=== PATIENT | male | born 1935 | race Caucasian/White ===

== ENCOUNTER → 2017-10-26 | Outpatient (CLI) | payer OTHER ==
[2017-10-26 10:23] LABS: Urine Bacteria FEW /hpf (None Seen); Urine Blood Negative /uL (Negative); Urine Mucus FEW (None Seen); Urine Specific Gravity 1.033 (1.001-1.035); Urine WBC 1 /hpf (0 - 3)
[2017-10-26 10:26] LABS: Free T4 (Free Thyroxine) 1.32 ng/dL (0.89-1.76)
[2017-10-26 10:27] LABS: Prostate Specific Antigen 0.25 ng/mL (0.0-4.0)
[2017-10-26 10:35] LABS: Basophils # (auto) 0.1 uL; Basophils % (auto) 1.6 % (0.0-2.0); Eosinophils # (auto) 0.3 uL; Eosinophils % (auto) 3.2 % (0.0-7.0); Hematocrit 41.1 % (41.0-53.0); Hemoglobin 13.5 g/dL (13.5-17.5); Lymphocytes # (auto) 2.2 uL; Lymphocytes % (auto) 24.7 % (10.0-50.0); Mean Corpuscular Hemoglobin 29.9 pg (28.0-32.0); Mean Corpuscular Hgb Conc. 32.9 g/dL (32.0-36.0); Monocytes # (auto) 0.6 uL; Neutrophils # (auto) 5.6 uL; Neutrophils % (auto) 63.5 % (37.0-80.0); Nucleated Red Blood Cells % 0.2 %; Platelet Count (auto) 299 10^3/uL (140-450); Red Blood Cells 4.51 10^6/uL (4.5-5.90); Red Cell Distribution Width 15.3 % (11.8-14.3); White Blood Cell 8.8 10^3/uL (4.4-10.8)
[2017-10-26 10:36] LABS: Alanine Aminotransferase 9 U/L (16-61); Albumin 3.3 g/dL (3.4-5.0); Alkaline Phosphatase 93 U/L (45-117); Anion Gap 6 (5-15); Aspartate Aminotransferase 16 U/L (15-37); BUN/Creatinine Ratio 14.2; Bilirubin, Total 0.4 mg/dL (0.2-1.0); Blood Urea Nitrogen 19 mg/dL (7-18); Calcium 7.9 mg/dL (8.5-10.1); Carbon Dioxide 23 mmol/L (21-32); Chloride 112 mmol/L (98-107); Cholesterol 131 mg/dL (< 200); GFR African American 65 mL/min; GFR Non-African American 54 mL/min; Glucose 108 mg/dL (74-106); HDL Cholesterol 25 mg/dL (40-59); Potassium 4.5 mmol/L (3.5-5.1); Sodium 141 mmol/L (136-145); Total Protein 6.4 g/dL (6.4-8.2); Triglycerides 476 mg/dL (< 150)
== END | disposition home or self-care (01) ==
LOC: LAB 09:10
PROVIDERS: ATTEND Internal Medicine
DX: N40.0 Benign prostatic hyperplasia without lower urinary tract symptoms (principal); H92.02 Otalgia, left ear; I10 Essential (primary) hypertension
CPT/HCPCS: 36415; 80053; 80061; 81001; 84153; 84439; 84443; 85025; 85652

== ENCOUNTER 2018-07-18 13:14 | Emergency (ER) | payer OTHER ==
[~2018-07-18] VITALS: Ht 175.3 cm; Wt 68.0 kg
[2018-07-18] MEDS ORDERED: SODIUM CHLORIDE 0.9% 1,000 ML IV ONE (13:18)
[2018-07-18 14:09] VITALS: BP 143/67
[2018-07-18 14:23] LABS: Basophils # (auto) 0.1 uL; Basophils % (auto) 0.8 % (0.0-2.0); Eosinophils # (auto) 0.1 uL; Eosinophils % (auto) 0.9 % (0.0-7.0); Hematocrit 41.8 % (41.0-53.0); Hemoglobin 13.8 g/dL (13.5-17.5); Lymphocytes # (auto) 1.7 uL; Lymphocytes % (auto) 18.9 % (10.0-50.0); Mean Corpuscular Hemoglobin 30.4 pg (28.0-32.0); Mean Corpuscular Volume 92.2 fL (80.0-100.0); Monocytes # (auto) 0.6 uL; Monocytes % (auto) 6.3 % (0.0-12.0); Neutrophils # (auto) 6.8 uL; Neutrophils % (auto) 73.1 % (37.0-80.0); Nucleated Red Blood Cells % 0.1 %; Platelet Count (auto) 277 10^3/uL (140-450); Red Blood Cells 4.54 10^6/uL (4.5-5.90); Red Cell Distribution Width 15.5 % (11.8-14.3); White Blood Cell 9.2 10^3/uL (4.4-10.8)
[2018-07-18 14:38] LABS: INR 0.95 (0.9-1.15); Partial Thromboplastin Time 31.2 sec (23.78-33.04); Prothrombin Time 10.2 sec (9.27-12.13)
[2018-07-18 14:42] LABS: Albumin 3.5 g/dL (3.4-5.0); Anion Gap 9 (5-15); Blood Urea Nitrogen 54 mg/dL (7-18); Calcium 7.7 mg/dL (8.5-10.1); Carbon Dioxide 17 mmol/L (21-32); Chloride 109 mmol/L (98-107); Glucose 69 mg/dL (74-106); Potassium 4.5 mmol/L (3.5-5.1); Sodium 135 mmol/L (136-145)
[2018-07-18 14:48] LABS: Alanine Aminotransferase 15 U/L (16-61); Alkaline Phosphatase 90 U/L (45-117); Aspartate Aminotransferase 16 U/L (15-37); BUN/Creatinine Ratio 31.8; GFR African American 50 mL/min; GFR Non-African American 41 mL/min; Total Protein 7.1 g/dL (6.4-8.2)
== END 2018-07-18 16:16 | disposition home or self-care (01) ==
LOC: ER 13:16
DX: R55 Syncope and collapse (principal); I10 Essential (primary) hypertension
CPT/HCPCS: 36415; 70450; 71045; 80053; 83880; 84484; 85025; 85610; 85730; 93005; 96360; 99284; J7030

== ENCOUNTER → 2019-03-22 | Outpatient (CLI) | payer OTHER ==
[2019-03-22 12:58] LABS: Basophils # (auto) 0.1 uL; Basophils % (auto) 0.9 % (0.0-2.0); Eosinophils # (auto) 0.4 uL; Eosinophils % (auto) 3.6 % (0.0-7.0); Hematocrit 39.4 % (41.0-53.0); Hemoglobin 13.2 g/dL (13.5-17.5); Lymphocytes # (auto) 2.1 uL; Lymphocytes % (auto) 21.4 % (10.0-50.0); Mean Corpuscular Hemoglobin 30.5 pg (28.0-32.0); Mean Corpuscular Hgb Conc. 33.4 g/dL (32.0-36.0); Mean Corpuscular Volume 91.4 fL (80.0-100.0); Monocytes # (auto) 0.8 uL; Monocytes % (auto) 7.9 % (0.0-12.0); Neutrophils # (auto) 6.6 uL; Neutrophils % (auto) 66.2 % (37.0-80.0); Platelet Count (auto) 323 10^3/uL (140-450); Red Blood Cells 4.32 10^6/uL (4.5-5.90); Red Cell Distribution Width 13.6 % (11.8-14.3); White Blood Cell 9.9 10^3/uL (4.4-10.8)
[2019-03-22 13:09] LABS: Albumin 3.1 g/dL (3.4-5.0); BUN/Creatinine Ratio 29.6; Calcium 8.6 mg/dL (8.5-10.1); Potassium 4.5 mmol/L (3.5-5.1)
[2019-03-22 13:12] LABS: Bilirubin, Total 0.5 mg/dL (0.2-1.0); Total Protein 6.9 g/dL (6.4-8.2)
[2019-03-22 13:15] LABS: % Iron Saturation 18.8 % (20-55)
[2019-03-22 13:19] LABS: Folate (Folic Acid) 19.68 ng/mL (5.38-24)
== END | disposition home or self-care (01) ==
LOC: LAB 11:51
PROVIDERS: ATTEND Internal Medicine
DX: C01 Malignant neoplasm of base of tongue (principal)
CPT/HCPCS: 36415; 80053; 82607; 82746; 83540; 83550; 83615; 85025

== ENCOUNTER → 2019-03-28 | Outpatient (CLI) | payer OTHER ==
[2019-03-28 10:36] LABS: Basophils # (auto) 0.1 uL; Basophils % (auto) 1.1 % (0.0-2.0); Eosinophils # (auto) 0.2 uL; Eosinophils % (auto) 2.8 % (0.0-7.0); Hematocrit 37.6 % (41.0-53.0); Hemoglobin 12.5 g/dL (13.5-17.5); Lymphocytes # (auto) 1.2 uL; Lymphocytes % (auto) 15.9 % (10.0-50.0); Mean Corpuscular Hemoglobin 30.3 pg (28.0-32.0); Mean Corpuscular Hgb Conc. 33.3 g/dL (32.0-36.0); Monocytes # (auto) 0.4 uL; Monocytes % (auto) 4.9 % (0.0-12.0); Neutrophils # (auto) 5.9 uL; Neutrophils % (auto) 75.3 % (37.0-80.0); Nucleated Red Blood Cells % 0.1 %; Platelet Count (auto) 279 10^3/uL (140-450); Red Blood Cells 4.13 10^6/uL (4.5-5.90); White Blood Cell 7.8 10^3/uL (4.4-10.8)
[2019-03-28 11:17] LABS: Potassium 4.5 mmol/L (3.5-5.1)
[2019-03-28 11:19] LABS: BUN/Creatinine Ratio 26.4
[2019-03-28 11:40] LABS: Bilirubin, Total 0.5 mg/dL (0.2-1.0); Total Protein 6.2 g/dL (6.4-8.2)
== END | disposition home or self-care (01) ==
LOC: LAB 10:11
PROVIDERS: ATTEND Internal Medicine Hematology & Oncology
DX: C01 Malignant neoplasm of base of tongue (principal)
CPT/HCPCS: 36415; 80053; 83615; 85025

== ENCOUNTER → 2019-04-05 | Outpatient (CLI) | payer OTHER ==
[2019-04-05 10:44] LABS: Basophils # (auto) 0.1 uL; Basophils % (auto) 0.9 % (0.0-2.0); Eosinophils # (auto) 0.3 uL; Eosinophils % (auto) 3.5 % (0.0-7.0); Hematocrit 35.4 % (41.0-53.0); Hemoglobin 11.9 g/dL (13.5-17.5); Lymphocytes # (auto) 1.2 uL; Lymphocytes % (auto) 15.2 % (10.0-50.0); Mean Corpuscular Hemoglobin 30.6 pg (28.0-32.0); Mean Corpuscular Hgb Conc. 33.5 g/dL (32.0-36.0); Mean Corpuscular Volume 91.3 fL (80.0-100.0); Monocytes # (auto) 0.5 uL; Monocytes % (auto) 6.5 % (0.0-12.0); Neutrophils # (auto) 6.1 uL; Neutrophils % (auto) 73.9 % (37.0-80.0); Nucleated Red Blood Cells % 0.1 %; Platelet Count (auto) 285 10^3/uL (140-450); Red Blood Cells 3.88 10^6/uL (4.5-5.90); Red Cell Distribution Width 13.6 % (11.8-14.3); White Blood Cell 8.2 10^3/uL (4.4-10.8)
[2019-04-05 11:18] LABS: BUN/Creatinine Ratio 27.1; Calcium 8.1 mg/dL (8.5-10.1); Magnesium 2.5 mg/dL (1.6-2.6); Potassium 4.4 mmol/L (3.5-5.1)
[2019-04-05 11:20] LABS: Bilirubin, Total 0.5 mg/dL (0.2-1.0); Total Protein 6.5 g/dL (6.4-8.2)
== END | disposition home or self-care (01) ==
LOC: LAB 10:18
PROVIDERS: ATTEND Internal Medicine Hematology & Oncology
DX: C01 Malignant neoplasm of base of tongue (principal)
CPT/HCPCS: 36415; 80053; 83615; 83735; 85025

== ENCOUNTER → 2019-04-12 | Outpatient (CLI) | payer OTHER ==
[2019-04-12 10:53] LABS: Basophils # (auto) 0 uL; Basophils % (auto) 0.8 % (0.0-2.0); Eosinophils # (auto) 0.2 uL; Eosinophils % (auto) 3.4 % (0.0-7.0); Hematocrit 34.5 % (41.0-53.0); Hemoglobin 11.7 g/dL (13.5-17.5); Lymphocytes # (auto) 0.9 uL; Lymphocytes % (auto) 14.9 % (10.0-50.0); Mean Corpuscular Hemoglobin 30.9 pg (28.0-32.0); Mean Corpuscular Hgb Conc. 33.9 g/dL (32.0-36.0); Mean Corpuscular Volume 91.1 fL (80.0-100.0); Monocytes # (auto) 0.5 uL; Monocytes % (auto) 8.5 % (0.0-12.0); Neutrophils # (auto) 4.5 uL; Neutrophils % (auto) 72.4 % (37.0-80.0); Nucleated Red Blood Cells % 0.2 %; Platelet Count (auto) 258 10^3/uL (140-450); Red Blood Cells 3.79 10^6/uL (4.5-5.90); Red Cell Distribution Width 14.2 % (11.8-14.3); White Blood Cell 6.2 10^3/uL (4.4-10.8)
[2019-04-12 11:29] LABS: Potassium 4.5 mmol/L (3.5-5.1)
[2019-04-12 11:38] LABS: Albumin 3.2 g/dL (3.4-5.0); BUN/Creatinine Ratio 27.3; Bilirubin, Total 0.5 mg/dL (0.2-1.0); Calcium 8.4 mg/dL (8.5-10.1); Magnesium 2.6 mg/dL (1.6-2.6); Total Protein 6.4 g/dL (6.4-8.2)
== END | disposition home or self-care (01) ==
LOC: LAB 09:55
PROVIDERS: ATTEND Internal Medicine
DX: C01 Malignant neoplasm of base of tongue (principal)
CPT/HCPCS: 36415; 80053; 83735; 85025

== ENCOUNTER → 2019-04-19 | Outpatient (CLI) | payer OTHER ==
[2019-04-19 10:27] LABS: Basophils # (auto) 0.1 uL; Basophils % (auto) 1.2 % (0.0-2.0); Eosinophils # (auto) 0.3 uL; Eosinophils % (auto) 4.8 % (0.0-7.0); Hematocrit 30.7 % (41.0-53.0); Lymphocytes % (auto) 18.8 % (10.0-50.0); Mean Corpuscular Hemoglobin 31.7 pg (28.0-32.0); Mean Corpuscular Hgb Conc. 35.9 g/dL (32.0-36.0); Mean Corpuscular Volume 88.4 fL (80.0-100.0); Monocytes # (auto) 0.3 uL; Neutrophils # (auto) 3.7 uL; Neutrophils % (auto) 69.2 % (37.0-80.0); Platelet Count (auto) 155 10^3/uL (140-450); Red Blood Cells 3.47 10^6/uL (4.5-5.90); Red Cell Distribution Width 14.1 % (11.8-14.3); White Blood Cell 5.4 10^3/uL (4.4-10.8)
[2019-04-19 11:07] LABS: Albumin 3.2 g/dL (3.4-5.0); BUN/Creatinine Ratio 27.1; Potassium 4.5 mmol/L (3.5-5.1)
[2019-04-19 11:10] LABS: Bilirubin, Total 0.6 mg/dL (0.2-1.0); Total Protein 6.5 g/dL (6.4-8.2)
== END | disposition home or self-care (01) ==
LOC: LAB 10:09
PROVIDERS: ATTEND Internal Medicine
DX: C01 Malignant neoplasm of base of tongue (principal)
CPT/HCPCS: 36415; 80053; 85025

== ENCOUNTER → 2019-04-26 | Outpatient (CLI) | payer OTHER ==
[2019-04-26 10:50] LABS: Basophils # (auto) 0 uL; Basophils % (auto) 0.8 % (0.0-2.0); Eosinophils # (auto) 0.3 uL; Eosinophils % (auto) 6.8 % (0.0-7.0); Hematocrit 31.6 % (41.0-53.0); Lymphocytes # (auto) 0.9 uL; Lymphocytes % (auto) 21.5 % (10.0-50.0); Mean Corpuscular Hemoglobin 31.5 pg (28.0-32.0); Mean Corpuscular Hgb Conc. 34.9 g/dL (32.0-36.0); Mean Corpuscular Volume 90.3 fL (80.0-100.0); Monocytes # (auto) 0.3 uL; Monocytes % (auto) 6.7 % (0.0-12.0); Neutrophils # (auto) 2.6 uL; Neutrophils % (auto) 64.2 % (37.0-80.0); Nucleated Red Blood Cells % 0.1 %; Platelet Count (auto) 181 10^3/uL (140-450); Red Blood Cells 3.49 10^6/uL (4.5-5.90); Red Cell Distribution Width 14.3 % (11.8-14.3)
[2019-04-26 12:16] LABS: Albumin 3.2 g/dL (3.4-5.0); BUN/Creatinine Ratio 25.5; Bilirubin, Total 0.7 mg/dL (0.2-1.0); Total Protein 6.4 g/dL (6.4-8.2)
== END | disposition home or self-care (01) ==
LOC: LAB 09:48
PROVIDERS: ATTEND Internal Medicine
DX: C01 Malignant neoplasm of base of tongue (principal)
CPT/HCPCS: 36415; 80053; 83615; 85025

== ENCOUNTER → 2019-05-03 | Outpatient (CLI) | payer OTHER ==
[2019-05-03 09:32] LABS: Basophils # (auto) 0 uL; Basophils % (auto) 0.8 % (0.0-2.0); Eosinophils # (auto) 0.1 uL; Eosinophils % (auto) 1.8 % (0.0-7.0); Hemoglobin 10.7 g/dL (13.5-17.5); Lymphocytes # (auto) 0.6 uL; Lymphocytes % (auto) 17.3 % (10.0-50.0); Mean Corpuscular Hemoglobin 31.8 pg (28.0-32.0); Mean Corpuscular Hgb Conc. 34.3 g/dL (32.0-36.0); Mean Corpuscular Volume 92.7 fL (80.0-100.0); Monocytes # (auto) 0.4 uL; Monocytes % (auto) 12.8 % (0.0-12.0); Neutrophils # (auto) 2.2 uL; Neutrophils % (auto) 67.3 % (37.0-80.0); Platelet Count (auto) 251 10^3/uL (140-450); Red Blood Cells 3.35 10^6/uL (4.5-5.90); Red Cell Distribution Width 14.8 % (11.8-14.3); White Blood Cell 3.3 10^3/uL (4.4-10.8)
[2019-05-03 10:11] LABS: Albumin 3.1 g/dL (3.4-5.0); Calcium 7.8 mg/dL (8.5-10.1); Potassium 5.4 mmol/L (3.5-5.1)
[2019-05-03 10:14] LABS: BUN/Creatinine Ratio 24.2; Bilirubin, Total 0.6 mg/dL (0.2-1.0); Total Protein 6.5 g/dL (6.4-8.2)
== END | disposition home or self-care (01) ==
LOC: LAB 09:16
PROVIDERS: ATTEND Internal Medicine Hematology & Oncology
DX: C01 Malignant neoplasm of base of tongue (principal)
CPT/HCPCS: 36415; 80053; 83615; 85025

== ENCOUNTER → 2019-05-23 | Outpatient (CLI) | payer OTHER ==
[2019-05-23 10:47] LABS: Hematocrit 31.3 % (41.0-53.0); Hemoglobin 10.6 g/dL (13.5-17.5); Mean Corpuscular Hemoglobin 33.7 pg (28.0-32.0); Mean Corpuscular Hgb Conc. 34.1 g/dL (32.0-36.0); Mean Corpuscular Volume 99.1 fL (80.0-100.0); Platelet Count (auto) 223 10^3/uL (140-450); Red Blood Cells 3.16 10^6/uL (4.5-5.90); White Blood Cell 7.4 10^3/uL (4.4-10.8)
[2019-05-23 10:50] LABS: Basophils % (manual) 0 (0.0-2.0); Blast Cells 0; Myelocytes % 0; Promyelocytes % 0; Reactive Lymphocytes 0
[2019-05-23 11:32] LABS: Band Neutrophils % (manual) 14; Eosinophils % (manual) 2 (0-7); Ferritin 530.1 ng/mL (10-322); Folate (Folic Acid) > 24.00 ng/mL (5.38-24); Lymphocytes % (manual) 11 (10.0-50.0); Metamyelocytes % 2; Monocytes % (manual) 6 (0-12)
[2019-05-23 12:24] LABS: Potassium 4.6 mmol/L (3.5-5.1)
[2019-05-23 12:39] LABS: Albumin 2.9 g/dL (3.4-5.0); BUN/Creatinine Ratio 27.3; Bilirubin, Total 0.5 mg/dL (0.2-1.0); Calcium 8.6 mg/dL (8.5-10.1); Total Protein 6.9 g/dL (6.4-8.2)
[2019-05-23 12:44] LABS: % Iron Saturation 25.4 % (20-55)
== END | disposition home or self-care (01) ==
LOC: LAB 10:27
PROVIDERS: ATTEND Internal Medicine
DX: C01 Malignant neoplasm of base of tongue (principal)
CPT/HCPCS: 36415; 80053; 82607; 82728; 82746; 83540; 83550; 83615; 85007; 85027

== ENCOUNTER → 2019-08-21 | Outpatient (CLI) | payer OTHER ==
[2019-08-21 14:20] LABS: Albumin 3.3 g/dL (3.4-5.0); Calcium 8.3 mg/dL (8.5-10.1); Potassium 4.3 mmol/L (3.5-5.1)
[2019-08-21 14:21] LABS: % Iron Saturation 12.6 % (20-55)
[2019-08-21 14:23] LABS: BUN/Creatinine Ratio 31.6; Basophils # (auto) 0.1 uL; Basophils % (auto) 0.8 % (0.0-2.0); Bilirubin, Total 0.6 mg/dL (0.2-1.0); Eosinophils # (auto) 0.1 uL; Eosinophils % (auto) 2.1 % (0.0-7.0); Hematocrit 35.3 % (41.0-53.0); Hemoglobin 12.1 g/dL (13.5-17.5); Lymphocytes # (auto) 0.8 uL; Lymphocytes % (auto) 11.2 % (10.0-50.0); Mean Corpuscular Hgb Conc. 34.3 g/dL (32.0-36.0); Monocytes # (auto) 0.6 uL; Monocytes % (auto) 7.8 % (0.0-12.0); Neutrophils # (auto) 5.7 uL; Neutrophils % (auto) 78.1 % (37.0-80.0); Platelet Count (auto) 250 10^3/uL (140-450); Red Blood Cells 3.57 10^6/uL (4.5-5.90); Total Protein 6.9 g/dL (6.4-8.2); White Blood Cell 7.3 10^3/uL (4.4-10.8)
== END | disposition home or self-care (01) ==
LOC: LAB 13:40
PROVIDERS: ATTEND Internal Medicine
DX: D10.1 Benign neoplasm of tongue (principal)
CPT/HCPCS: 36415; 80053; 82607; 83540; 83550; 83615; 85025

== ENCOUNTER → 2019-11-28 | Outpatient (CLI) | payer OTHER ==
[2019-11-28 09:06] LABS: Basophils # (auto) 0.1 10 ^3/uL (0-0.2); Basophils % (auto) 1.1 % (0.0-2.0); Eosinophils # (auto) 0.2 10 ^3/uL (0-0.8); Eosinophils % (auto) 2.6 % (0.0-7.0); Hematocrit 40.2 % (41.0-53.0); Hemoglobin 13.3 g/dL (13.5-17.5); Lymphocytes # (auto) 0.8 10 ^3/uL (0.4-5.4); Lymphocytes % (auto) 12.9 % (10.0-50.0); Mean Corpuscular Hemoglobin 31.2 pg (28.0-32.0); Mean Corpuscular Volume 94.4 fL (80.0-100.0); Monocytes # (auto) 0.5 10 ^3/uL (0-1.3); Monocytes % (auto) 7.2 % (0.0-12.0); Neutrophils % (auto) 76.2 % (37.0-80.0); Nucleated Red Blood Cells % 0.1 %; Platelet Count (auto) 277 10^3/uL (140-450); Red Blood Cells 4.26 10^6/uL (4.5-5.90); Red Cell Distribution Width 14.7 % (11.8-14.3); White Blood Cell 6.5 10^3/uL (4.4-10.8)
[2019-11-28 10:03] LABS: Potassium 4.2 mmol/L (3.5-5.1)
[2019-11-28 10:13] LABS: Albumin 3.1 g/dL (3.4-5.0); BUN/Creatinine Ratio 26.2; Bilirubin, Total 0.7 mg/dL (0.2-1.0); Calcium 8.5 mg/dL (8.5-10.1); Total Protein 6.8 g/dL (6.4-8.2)
== END | disposition home or self-care (01) ==
LOC: LAB 08:42
PROVIDERS: ATTEND Internal Medicine
DX: D10.1 Benign neoplasm of tongue (principal)
CPT/HCPCS: 36415; 80053; 83615; 85025

== ENCOUNTER 2020-02-17 20:58 | Emergency (ER) | payer OTHER ==
[~2020-02-17] VITALS: Ht 175.3 cm; Wt 72.6 kg
[2020-02-17 22:06] LABS: Urine Bacteria NONE SEEN /hpf (None Seen); Urine Blood Negative /uL (Negative); Urine Specific Gravity 1.019 (1.001-1.035); Urine WBC 1 /hpf (0 - 3)
[2020-02-18 00:11] LABS: Basophils # (auto) 0.1 10 ^3/uL (0-0.2); Basophils % (auto) 0.5 % (0.0-2.0); Eosinophils # (auto) 0.1 10 ^3/uL (0-0.8); Eosinophils % (auto) 0.9 % (0.0-7.0); Hematocrit 41.2 % (41.0-53.0); Hemoglobin 13.8 g/dL (13.5-17.5); Lymphocytes # (auto) 0.9 10 ^3/uL (0.4-5.4); Lymphocytes % (auto) 7.4 % (10.0-50.0); Mean Corpuscular Hemoglobin 30.4 pg (28.0-32.0); Mean Corpuscular Hgb Conc. 33.5 g/dL (32.0-36.0); Mean Corpuscular Volume 90.8 fL (80.0-100.0); Monocytes # (auto) 0.9 10 ^3/uL (0-1.3); Monocytes % (auto) 7.6 % (0.0-12.0); Neutrophils # (auto) 9.9 10 ^3/uL (1.6-8.6); Neutrophils % (auto) 83.6 % (37.0-80.0); Platelet Count (auto) 269 10^3/uL (140-450); Red Blood Cells 4.54 10^6/uL (4.5-5.90); Red Cell Distribution Width 14.9 % (11.8-14.3); White Blood Cell 11.8 10^3/uL (4.4-10.8)
[2020-02-18 00:28] LABS: Albumin 3.5 g/dL (3.4-5.0); Amylase 48 U/L (25-115); Anion Gap 6 (5-15); BUN/Creatinine Ratio 19.7; Blood Urea Nitrogen 29 mg/dL (7-18); Calcium 8.7 mg/dL (8.5-10.1); Carbon Dioxide 26 mmol/L (21-32); Chloride 100 mmol/L (98-107); GFR African American 58 mL/min; GFR Non-African American 48 mL/min; Glucose 112 mg/dL (74-106); Lipase 137 U/L (73-393); Potassium 4.2 mmol/L (3.5-5.1); Sodium 132 mmol/L (136-145)
[2020-02-18 00:33] LABS: Alanine Aminotransferase 26 U/L (16-61); Alkaline Phosphatase 150 U/L (45-117); Aspartate Aminotransferase 24 U/L (15-37); Bilirubin, Total 1.3 mg/dL (0.2-1.0); Total Protein 7.9 g/dL (6.4-8.2)
[2020-02-18 04:12] VITALS: BP 157/68
== END 2020-02-18 07:49 | disposition home or self-care (01) ==
LOC: ER 20:58
DX: D72.829 Elevated white blood cell count, unspecified (principal); E86.0 Dehydration; I10 Essential (primary) hypertension
CPT/HCPCS: 36415; 74176; 80053; 81001; 82150; 83690; 84484; 85025; 93005

== ENCOUNTER 2020-05-18 16:14 | Inpatient (IN) | payer OTHER ==
[~2020-05-18] VITALS: Ht 172.7 cm; Wt 75.0 kg
[2020-05-18 17:12] LABS: Urine Bacteria FEW /hpf (None Seen); Urine Blood Negative /uL (Negative); Urine Hyaline Cast FEW /lpf (0 - 2); Urine WBC 1 /hpf (0 - 3)
[2020-05-18 17:45] LABS: Basophils # (auto) 0.1 10 ^3/uL (0-0.2); Basophils % (auto) 0.2 % (0.0-2.0); Eosinophils # (auto) 0 10 ^3/uL (0-0.8); Hematocrit 43.8 % (41.0-53.0); Lymphocytes # (auto) 1.1 10 ^3/uL (0.4-5.4); Mean Corpuscular Hemoglobin 29.9 pg (28.0-32.0); Mean Corpuscular Volume 93.4 fL (80.0-100.0); Monocytes % (auto) 3.7 % (0.0-12.0); Neutrophils # (auto) 24.8 10 ^3/uL (1.6-8.6); Neutrophils % (auto) 92.1 % (37.0-80.0); Platelet Count (auto) 352 10^3/uL (140-450); Red Blood Cells 4.69 10^6/uL (4.5-5.90); Red Cell Distribution Width 15.7 % (11.8-14.3)
[2020-05-18 17:52] LABS: Albumin 3.8 g/dL (3.4-5.0); BUN/Creatinine Ratio 30.4; Calcium 8.8 mg/dL (8.5-10.1); Potassium 4.9 mmol/L (3.5-5.1)
[2020-05-18 17:59] LABS: Bilirubin, Total 1.9 mg/dL (0.2-1.0); Total Protein 7.9 g/dL (6.4-8.2)
[2020-05-18] MEDS ORDERED: MORPHINE SULFATE 4 MG/ML SYR/VIAL IV ONE (18:45)
[2020-05-18] MEDS ORDERED: ONDANSETRON HCL 4 MG/2 ML VIAL IV ONE (18:45)
[2020-05-18] MEDS ORDERED: PIPERACILLIN-TAZOB 3.375GM 100 ML IV ONE (18:45)
[2020-05-18] MEDS ORDERED: SODIUM CHLORIDE 0.9% 1,000 ML IV ONE (18:45)
[2020-05-18 19:52] LABS: Lactic Acid w/Reflex 3.1 mmol/L (0.4-2.0)
[2020-05-18] MEDS ORDERED: ACETAMINOPHEN 325 MG TAB PO PRN (23:45)
[2020-05-18] MEDS ORDERED: NITROGLYCERIN 0.4 MG SL TAB SL PRN (23:45)
[2020-05-18] MEDS ORDERED: SODIUM CHLORIDE 0.9% 1,000 ML IV SCH (23:45)
[2020-05-18] MEDS ORDERED: ONDANSETRON HCL 4 MG/2 ML VIAL IV PRN (23:45)
[2020-05-18] MEDS ORDERED: DOCUSATE SOD 100 MG CAP PO PRN (23:45)
[2020-05-18] MEDS ORDERED: MORPHINE SULF INJ 2 MG/ML SYRINGE 1ML IV PRN (23:45)
[2020-05-19] VITALS (7 sets, daily range): BP systolic 135–152; BP diastolic 73–78
[2020-05-19] MEDS: MORPHINE SULFATE 4 MG/ML SYR/VIAL IV PRN ×2 (01:22→09:16)
--- NOTE | 2020-05-19 01:50 | NUR ---
ADMISSION NOTE PT ADMITTED TO ROOM 218-A IN [facility]. PT ORIENTED TO ROOM AND PROCEDURES AND POC DISCUSSED WITH PT. PT NOTED TO HAVE A BAND AID DRSG OVER A DC'D FEEDING TUBE SITE. LEFT UPPER ABD HAS A SMALL SCAB AND SURROUNDING TISSUE IS PINK. BED IS LOW, WHEELS ARE LOCKED, AND CALL LIGHT IS WITH IN REACH.
[2020-05-19] MEDS ORDERED: PIPERACILLIN-TAZOB 2.25GM 50 ML IV SCH (06:00)
[2020-05-19] MEDS ORDERED: FOSI20TA3 PO (06:25)
[2020-05-19] MEDS ORDERED: METO25TA93 PO (06:25)
[2020-05-19 07:25] LABS: Basophils # (auto) 0 10 ^3/uL (0-0.2); Basophils % (auto) 0.2 % (0.0-2.0); Eosinophils # (auto) 0 10 ^3/uL (0-0.8); Eosinophils % (auto) 0.1 % (0.0-7.0); Hematocrit 41.9 % (41.0-53.0); Hemoglobin 14.1 g/dL (13.5-17.5); Lymphocytes # (auto) 0.9 10 ^3/uL (0.4-5.4); Lymphocytes % (auto) 5.8 % (10.0-50.0); Mean Corpuscular Hemoglobin 31.3 pg (28.0-32.0); Mean Corpuscular Hgb Conc. 33.6 g/dL (32.0-36.0); Monocytes # (auto) 0.7 10 ^3/uL (0-1.3); Monocytes % (auto) 4.6 % (0.0-12.0); Neutrophils # (auto) 14.2 10 ^3/uL (1.6-8.6); Neutrophils % (auto) 89.3 % (37.0-80.0); Nucleated Red Blood Cells % 0.1 %; Platelet Count (auto) 267 10^3/uL (140-450); Red Blood Cells 4.51 10^6/uL (4.5-5.90); Red Cell Distribution Width 15.2 % (11.8-14.3); White Blood Cell 15.9 10^3/uL (4.4-10.8)
[2020-05-19 07:52] LABS: Albumin 3.2 g/dL (3.4-5.0); BUN/Creatinine Ratio 33.2; Bilirubin, Total 1.3 mg/dL (0.2-1.0); Calcium 8.1 mg/dL (8.5-10.1); Total Protein 6.5 g/dL (6.4-8.2)
[2020-05-19 08:24] LABS: Potassium 5.7 mmol/L (3.5-5.1)
[2020-05-19] MEDS: PANTOPRAZOLE 40 MG/10 ML VIAL INJ IV SCH (09:16)
[2020-05-19] MEDS ORDERED: cefTRIAXone 1GM/50ML D5W 50 ML IV ONE (13:45)
[2020-05-19] MEDS ORDERED: SOD CHL 0.9%/ KCL 20MEQ 1,000 ML IV SCH (14:00)
[2020-05-19] MEDS: HYDROmorphone HCL 2 MG/ML VL IV PRN ×2 (14:17→21:38)
[2020-05-19] MEDS: SODIUM CHLORIDE 0.9% 1,000 ML IV SCH ×2 (14:17→21:37)
[2020-05-19] MEDS: metroNIDAZOLE 500MG/100ML 100 ML IV SCH ×2 (14:43→21:37)
--- NOTE | 2020-05-19 19:30 | NUR ---
Opening Shift Note Assumed care of patient, awake and alert. No S/S of distress/SOB. Pain reported to abdomen. Pain management discussed with patient. Instructed on POC and to call for assist PRN, will continue to monitor for changes Q1hr and PRN.
[2020-05-20 05:00] VITALS: BP 141/77
[2020-05-20] MEDS: metroNIDAZOLE 500MG/100ML 100 ML IV SCH (06:42)
[2020-05-20] MEDS: SODIUM CHLORIDE 0.9% 1,000 ML IV SCH (06:42)
--- NOTE | 2020-05-20 07:00 | NUR ---
Opening Shift Note Assumed care of patient, awake, alert lying supine with head down upon entering the room. No S/S of distress/SOB. Pain reported in the right abdominal pain upon palpation. Patient remains NPO awaiting HIDA scan. Instructed on POC and to call for assist PRN. Patient verbalized understanding. Bed is in lowest position an the call light is within reach of the patient. Will continue to monitor for changes Q1hr and PRN.
[2020-05-20 07:14] LABS: Amylase 718 U/L (25-115); Lipase 1431 U/L (73-393)
[2020-05-20 08:30] VITALS: BP 151/72
[2020-05-20] MEDS ORDERED: cefTRIAXone 1GM/50ML D5W 50 ML IV SCH (09:00)
[2020-05-20] MEDS: PANTOPRAZOLE 40 MG/10 ML VIAL INJ IV SCH (09:13)
[2020-05-20] MEDS: SODIUM BICARBONATE 50ML VIAL 150 ML in D5W 5% 1,000 ML IV SCH ×2 (09:15→20:48)
[2020-05-20 09:29] LABS: Basophils # (auto) 0 10 ^3/uL (0-0.2); Basophils % (auto) 0.1 % (0.0-2.0); Eosinophils # (auto) 0 10 ^3/uL (0-0.8); Hematocrit 40.9 % (41.0-53.0); Lymphocytes # (auto) 0.7 10 ^3/uL (0.4-5.4); Lymphocytes % (auto) 3.3 % (10.0-50.0); Mean Corpuscular Hemoglobin 30.5 pg (28.0-32.0); Mean Corpuscular Hgb Conc. 31.9 g/dL (32.0-36.0); Mean Corpuscular Volume 95.7 fL (80.0-100.0); Monocytes # (auto) 0.9 10 ^3/uL (0-1.3); Monocytes % (auto) 4.1 % (0.0-12.0); Neutrophils # (auto) 19.4 10 ^3/uL (1.6-8.6); Neutrophils % (auto) 92.5 % (37.0-80.0); Platelet Count (auto) 243 10^3/uL (140-450); Red Blood Cells 4.27 10^6/uL (4.5-5.90); Red Cell Distribution Width 16.2 % (11.8-14.3)
[2020-05-20 09:39] LABS: Albumin 2.9 g/dL (3.4-5.0); Calcium 7.9 mg/dL (8.5-10.1); Potassium 3.7 mmol/L (3.5-5.1)
[2020-05-20 09:41] LABS: BUN/Creatinine Ratio 24.3; Bilirubin, Total 0.9 mg/dL (0.2-1.0); Total Protein 6.4 g/dL (6.4-8.2)
[2020-05-20] MEDS ORDERED: MEROPENEM 1GM IVPB 100 ML IV ONE (09:45)
[2020-05-20] MEDS ORDERED: MEROPENEM 500MG IVPB 50 ML IV SCH (10:00)
[2020-05-20] MEDS ORDERED: MEROPENEM 1GM IVPB 100 ML IV SCH (10:00)
--- NOTE | 2020-05-20 10:20 | NUR ---
Dr. Hu at bedside Dr. Hu at bedside discussing the POC with the patient. Patient verbalized understanding. Orders given and carried out accordingly.
[2020-05-20 10:43] LABS: Cholesterol 84 mg/dL (< 200); HDL Cholesterol 37 mg/dL (40-59); LDL Cholesterol 36 mg/dL (< 100); Triglycerides 102 mg/dL (< 150)
[2020-05-20 12:30] VITALS: BP 152/78
--- NOTE | 2020-05-20 13:00 | NUR ---
Dr. Waters at bedside Dr. Waters at bedside discussing the POC. All questions and concerns were addressed at this time.
--- NOTE | 2020-05-20 15:01 | NUR ---
US at bedside US at bedside conducting kidney ultrasound.
[2020-05-20] MEDS: HYDROcodone-ACET 5/325MG TAB PO PRN ×3 (15:43→18:03)
[2020-05-20] MEDS: HYDROmorphone HCL 2 MG/ML VL IV PRN (15:52)
[2020-05-20 17:00] VITALS: BP 149/69
[2020-05-20 17:46] LABS: Calcium 7.8 mg/dL (8.5-10.1); Potassium 4.9 mmol/L (3.5-5.1)
[2020-05-20 17:48] LABS: BUN/Creatinine Ratio 25.4
[2020-05-20 22:00] VITALS: BP 155/85
[2020-05-20] MEDS: MEROPENEM 500MG IVPB 50 ML IV SCH (22:48)
--- NOTE | 2020-05-21 | NUR ---
Patient refused to turn/reposition q2 hrs or prn for skin breakdown prevention. Patient does have blanchable redness on heels bilateral, right heel has a scab, and blanchable redness to coccyx/sacrum area. Educated patient on the importance of turning/repositioning q2 hours or prn for prevention of skin breakdown. Patient verbally acknowledge education given and still refused to turn/reposition q2 hours or prn.
[2020-05-21] MEDS: HYDROmorphone HCL 2 MG/ML VL IV PRN ×3 (02:18→21:15)
[2020-05-21 05:00] VITALS: BP 171/78
[2020-05-21 06:08] LABS: Basophils # (auto) 0 10 ^3/uL (0-0.2); Basophils % (auto) 0.1 % (0.0-2.0); Eosinophils # (auto) 0 10 ^3/uL (0-0.8); Eosinophils % (auto) 0.1 % (0.0-7.0); Hematocrit 38.5 % (41.0-53.0); Hemoglobin 12.5 g/dL (13.5-17.5); Lymphocytes # (auto) 0.7 10 ^3/uL (0.4-5.4); Lymphocytes % (auto) 3.7 % (10.0-50.0); Mean Corpuscular Hemoglobin 30.4 pg (28.0-32.0); Mean Corpuscular Hgb Conc. 32.6 g/dL (32.0-36.0); Mean Corpuscular Volume 93.3 fL (80.0-100.0); Monocytes # (auto) 0.7 10 ^3/uL (0-1.3); Monocytes % (auto) 4.1 % (0.0-12.0); Neutrophils # (auto) 16.8 10 ^3/uL (1.6-8.6); Platelet Count (auto) 196 10^3/uL (140-450); Red Blood Cells 4.13 10^6/uL (4.5-5.90); Red Cell Distribution Width 15.5 % (11.8-14.3); White Blood Cell 18.3 10^3/uL (4.4-10.8)
[2020-05-21 06:27] LABS: INR 1.13 (0.9-1.15)
[2020-05-21 06:35] LABS: Potassium 4.2 mmol/L (3.5-5.1)
[2020-05-21 06:44] LABS: Albumin 2.6 g/dL (3.4-5.0); BUN/Creatinine Ratio 25.9; Bilirubin, Total 1.1 mg/dL (0.2-1.0); Total Protein 6.1 g/dL (6.4-8.2)
--- NOTE | 2020-05-21 07:30 | NUR ---
Opening Shift Note Assumed care of patient, awake and alert and sitting on the side of the bed upon entering the room. No S/S of distress/SOB. Patient requesting water. Instructed on the purpose of maintaining NPO status and that ice chips can be given. Patient verbalized understanding. Instructed on POC and to call for assist PRN. Bed is in lowest position and the call light is within reach of the patient. Will continue to monitor for changes Q1hr and PRN.
--- NOTE | 2020-05-21 08:55 | NUR ---
Cardiology at bedside Melchor STRAPPING MACHINE OPERATOR at bedside discussing the POC with the patient and assessing cardiac clearance for surgery. 12 lead ECG performed. Orders given and carried out accordingly.
[2020-05-21 09:00] VITALS: BP 162/71
--- NOTE | 2020-05-21 09:10 | NUR ---
IV removal IV DC'd with clean sterile technique due to leaking, catheter fully intact. Pressure dressing applied to site. Patient tolerated well. IV insertion. IV access obtained, via clean sterile technique by inserting 22 gauge catheter in the right AC after 1 attempt. IV secured properly. No trauma to site. Patient tolerated well.
--- NOTE | 2020-05-21 09:30 | NUR ---
Dr. Waters at bedside Dr. Waters at bedside discussing the POC and that surgical intervention is pending echo results. Patient verbalized understanding. Will continue to proceed with surgical prep and paperwork.
[2020-05-21] MEDS: MEROPENEM 500MG IVPB 50 ML IV SCH ×2 (10:53→21:17)
[2020-05-21] MEDS: PANTOPRAZOLE 40 MG/10 ML VIAL INJ IV SCH (10:53)
--- NOTE | 2020-05-21 11:29 | NUR ---
High BP Patient's BP 162/71. Dr. Waters called. Labetalol 10 mg ordered. Will reassess.
[2020-05-21] MEDS ORDERED: LABETALOL HCL 5 MG/ML 4ML SYRINGE IV ONE (11:30)
--- NOTE | 2020-05-21 11:44 | NUR ---
Nutrition Assessment Est energy needs 8841-2396 kcal (20-25 kcal/kg BW 74.3kg) Est protein needs 44-59g (0.6-0.8g/kg BW 74.3kg r/t CKD 3 with no HD) Will reassess prn. Addendum: 05/21/20 at [address] Amended: Links added.
--- NOTE | 2020-05-21 12:20 | NUR ---
BP reassessment BP reassessed 136/68. Will continue to monitor. No complaints of pain or distress at this time.
[2020-05-21] MEDS: LACTATED RINGER'S 1,000 ML IV SCH ×2 (14:05→21:17)
[2020-05-21 17:08] VITALS: BP 146/72
--- NOTE | 2020-05-21 17:31 | NUR ---
Spoke with family Spoke with concerning the scheduling of her 's surgery. Family verbalized that she would like a call when the decision is made to proceed or not. Will endorse to linseed oil refiner.
[2020-05-21 22:00] VITALS: BP 156/73
[2020-05-22] VITALS: BP 147/74
[2020-05-22] MEDS: HYDROmorphone HCL 2 MG/ML VL IV PRN ×3 (04:28→22:36)
[2020-05-22] MEDS: LACTATED RINGER'S 1,000 ML IV SCH ×2 (04:28→13:15)
[2020-05-22 05:00] VITALS: BP 141/65
[2020-05-22 06:45] LABS: Basophils # (auto) 0 10 ^3/uL (0-0.2); Basophils % (auto) 0.1 % (0.0-2.0); Eosinophils # (auto) 0.1 10 ^3/uL (0-0.8); Eosinophils % (auto) 0.5 % (0.0-7.0); Hematocrit 34.1 % (41.0-53.0); Lymphocytes # (auto) 0.5 10 ^3/uL (0.4-5.4); Lymphocytes % (auto) 3.6 % (10.0-50.0); Mean Corpuscular Hemoglobin 30.2 pg (28.0-32.0); Mean Corpuscular Hgb Conc. 32.4 g/dL (32.0-36.0); Mean Corpuscular Volume 93.5 fL (80.0-100.0); Monocytes # (auto) 0.6 10 ^3/uL (0-1.3); Monocytes % (auto) 4.3 % (0.0-12.0); Neutrophils # (auto) 13.3 10 ^3/uL (1.6-8.6); Neutrophils % (auto) 91.5 % (37.0-80.0); Platelet Count (auto) 187 10^3/uL (140-450); Red Blood Cells 3.64 10^6/uL (4.5-5.90); Red Cell Distribution Width 15.4 % (11.8-14.3); White Blood Cell 14.6 10^3/uL (4.4-10.8)
[2020-05-22 07:14] LABS: Albumin 2.2 g/dL (3.4-5.0); Calcium 7.8 mg/dL (8.5-10.1); Potassium 3.7 mmol/L (3.5-5.1)
[2020-05-22 07:20] LABS: BUN/Creatinine Ratio 27.5; Bilirubin, Total 1.1 mg/dL (0.2-1.0); Total Protein 5.5 g/dL (6.4-8.2)
--- NOTE | 2020-05-22 07:30 | NUR ---
opening note assumed care of patient from NOC RN. Patient is AOX4 no s/s of distress noted. Bed is in lowest locked position, call light with in reach and side rails up x2. Updated patient on plan of care, and patient verbalized understanding. Will continue to monitor.
[2020-05-22] MEDS ORDERED: ROCURONIUM 10MG/ML 10ML VIAL IV ONE (07:56)
[2020-05-22] MEDS ORDERED: NEOSTIGMINE 1 MG/ML INJ (10mg/10ML VIAL) ONE (07:56)
[2020-05-22] MEDS ORDERED: MEPERIDINE HCL (25 MG/ML) 1ML VIAL ONE (07:56)
[2020-05-22] MEDS ORDERED: SODIUM CHLORIDE LOCK 10 ML ONE (07:56)
[2020-05-22] MEDS ORDERED: ONDANSETRON HCL 4 MG/2 ML VIAL ONE (07:56)
[2020-05-22] MEDS ORDERED: fentaNYL CITRATE 100 MCG/2 ML VL ONE (07:56)
[2020-05-22] MEDS ORDERED: GLYCOPYRROLATE 0.2 MG/ML 1ML VIAL ONE (07:56)
[2020-05-22] MEDS ORDERED: MIDAZOLAM HCL 1MG/1ML-2 ML VIAL ONE (07:56)
[2020-05-22] MEDS ORDERED: ETOMIDATE (2MG/ML) 20ML VIAL IV ONE (07:56)
--- NOTE | 2020-05-22 08:00 | NUR ---
Patient off unit patient taken to procedure. No s/s of distress noted. Report given to pre-op nurse ayana.
[2020-05-22] MEDS ORDERED: ceFAZolin 1GM/50ML 50 ML IV ONE (08:05)
[2020-05-22 09:00] VITALS: BP 158/73
[2020-05-22] MEDS ORDERED: ONDANSETRON HCL 4 MG/2 ML VIAL IV PRN (09:00)
[2020-05-22] MEDS ORDERED: HYDROmorphone HCL 2 MG/ML VL IV PRN (09:00)
[2020-05-22] MEDS ORDERED: MORPHINE SULFATE 4 MG/ML SYR/VIAL IV PRN (09:00)
[2020-05-22] MEDS ORDERED: SUCCINYLCHOLINE CHLORIDE 20 MG/ML 10ML VIAL IV ONE (09:16)
--- NOTE | 2020-05-22 10:48 | NUR ---
assessment Patient is a 85 year old male who is alert and oriented and in surgery at this time. Per patients Mireya prior to admission patient lived home with her and was independent. Per Mireya patient has no need for DME prior to admission. Patients PCP is Dr Lemus. Patient has good family support per Mireya. Per Mireya she will transport patient home on discharge. Per Mireya patient has an advanced directive and POA. I informed Mireya I will continue to monitor and follow up as appropriate for any post discharge needs. Mireya verbalized understanding and agreed to discharge plan home. Addendum: 05/22/20 at 1053 by Kayleigh LAL Amended: Links added.
--- NOTE | 2020-05-22 11:21 | NUR ---
report report received from PACU nurse.
--- NOTE | 2020-05-22 11:30 | NUR ---
back on unit patient back on unit. Placed on bedside o2 at 4 L via nasal cannula. No s/s of distress. Dressing dry and intact, binder in place, ROYCE drain to suction. Will continue to monitor.
--- NOTE | 2020-05-22 12:30 | NUR ---
MD Notified MD notified of patient return to unit.
[2020-05-22] MEDS: MEROPENEM 500MG IVPB 50 ML IV SCH ×2 (12:46→22:04)
[2020-05-22] MEDS: PANTOPRAZOLE 40 MG/10 ML VIAL INJ IV SCH (12:46)
[2020-05-22 13:00] VITALS: BP 152/74
--- NOTE | 2020-05-22 13:00 | NUR ---
Physician rounding Dr. Hu at bedside. MD updated patient on plan of care, new orders received. Will follow through.
[2020-05-22] MEDS ORDERED: DEXTROSE (50%) 50ML SYRG IV PRN (13:15)
[2020-05-22 16:49] VITALS: BP 154/76
--- NOTE | 2020-05-22 17:44 | NUR ---
Pain patient stated feeling 4/10 pain. Informed patient that pain medication is not due. Informed patient other pain medication for pain level 4/10 is available. per patient he is unable to swallow pills, and stated "I will wait to take the other medication in the IV." Dimmed the lights, covered patient with blanket. Will continue to monitor.
--- NOTE | 2020-05-22 17:45 | NUR ---
Drain 50ml of serous sanguinous fluid drained from ROYCE drain. Bulb back to suction, will continue to monitor.
[2020-05-22] MEDS: ACCU-CHEK COMFORT CURVE STRIP VI SCH ×3 (17:48→22:03)
--- NOTE | 2020-05-22 19:10 | NUR ---
End of shift note Endorsed care to NOC GLORY Jade. No s/s of distress noted.
[2020-05-22] MEDS: HYDROcodone-ACET 5/325MG TAB PO PRN (19:53)
--- NOTE | 2020-05-22 20:00 | NUR ---
open note assumed care of pt, upon entering room pt awake and alert. pt on 2L nc no distress noted or expressed. pt oriented to this nurse and updated on plan of care. pt has abdominal binder, 3 incisions and dressings are intact. pt also marion drain, this nurse emptied 50cc serosanguineous fluid. pt bed locked low and 2x rails up. call light in reach, this nurse to round q1hr and prn. pt encouraged to call as needed.
[2020-05-22 22:00] VITALS: BP 146/77
[2020-05-22] MEDS ORDERED: KETOROLAC TROMETH 30 MG/ML 1ML VIAL IV ONE (22:30)
[2020-05-23] MEDS: ACCU-CHEK COMFORT CURVE STRIP VI SCH ×6 (02:00→23:19)
[2020-05-23] MEDS: LACTATED RINGER'S 1,000 ML IV SCH (04:30)
[2020-05-23 05:38] VITALS: BP 135/93
[2020-05-23 06:35] LABS: Basophils # (auto) 0 10 ^3/uL (0-0.2); Basophils % (auto) 0.2 % (0.0-2.0); Eosinophils # (auto) 0.1 10 ^3/uL (0-0.8); Eosinophils % (auto) 0.7 % (0.0-7.0); Hematocrit 37.4 % (41.0-53.0); Hemoglobin 12.3 g/dL (13.5-17.5); Lymphocytes # (auto) 0.7 10 ^3/uL (0.4-5.4); Lymphocytes % (auto) 4.1 % (10.0-50.0); Mean Corpuscular Volume 94.1 fL (80.0-100.0); Monocytes # (auto) 0.8 10 ^3/uL (0-1.3); Monocytes % (auto) 4.7 % (0.0-12.0); Neutrophils # (auto) 14.9 10 ^3/uL (1.6-8.6); Neutrophils % (auto) 90.3 % (37.0-80.0); Nucleated Red Blood Cells % 0.1 %; Platelet Count (auto) 217 10^3/uL (140-450); Red Blood Cells 3.97 10^6/uL (4.5-5.90); Red Cell Distribution Width 15.6 % (11.8-14.3); White Blood Cell 16.5 10^3/uL (4.4-10.8)
[2020-05-23 06:47] LABS: Calcium 7.9 mg/dL (8.5-10.1); Potassium 4.1 mmol/L (3.5-5.1)
[2020-05-23 06:54] LABS: Albumin 2.1 g/dL (3.4-5.0); BUN/Creatinine Ratio 29.8; Total Protein 5.7 g/dL (6.4-8.2)
--- NOTE | 2020-05-23 07:40 | NUR ---
opening note assumed care of patient from NOC RN. Patient is AOX4 no s/s of distress noted. Bed is in lowest locked position, call light with in reach and side rails up x2. Abdominal binder in place, dressings are clean dry and intact. ROYCE drain to suction. Updated patient on plan of care, and patient verbalized understanding. Will continue to monitor.
--- NOTE | 2020-05-23 08:50 | NUR ---
Drain ROYCE drain output of 90 ml serous sanguinous fluid. Bulb to suction.
[2020-05-23 08:52] VITALS: BP 131/73
--- NOTE | 2020-05-23 10:03 | NUR ---
Report Transfer of care given to GLORY Pink Report given.
[2020-05-23] MEDS: PANTOPRAZOLE 40 MG/10 ML VIAL INJ IV SCH (10:16)
[2020-05-23] MEDS: MEROPENEM 500MG IVPB 50 ML IV SCH (10:16)
[2020-05-23] MEDS: HYDROcodone-ACET 5/325MG TAB PO PRN (12:08)
--- NOTE | 2020-05-23 12:10 | NUR ---
Nutrition Followup Note Wt 75.7 kg Pt was sleeping at time of rounds. Per records pt s/p lap antoine 05/22. pt is now advanced to clear liq diet with no PO recorded yet. Est energy needs 5887-2128 kcal (20-25 kcal/kg BW 74.3kg) Est protein needs 44-59g (0.6-0.8g/kg BW 74.3kg r/t CKD 3 with no HD) Will reassess prn. Labs: BUN 42 H CREAT 1.41 H ALB 2.1 L CA 7.9 L BM: Pt has no BM today per RN note Skin: BS 21 low risk, full details in aged or disabled carer note. PES: Altered nutrition related labs aeb pt with elevated RFTs, hypoalb, elevated bilirubin r/t current and chronic medical conditions Partially resolved: Inadequate oral intake aeb pt with a NPO diet order r/t current medical condition Comments: will continue to monitor PO intake, skin status. F/u mod 2-3 days Rec: 1) advance diet as medically feasible. 2) consider prostat 1 packet bid as RFT improve. 3) pt diet to adv and pt to tolerate diet
[2020-05-23 13:00] VITALS: BP 122/70
[2020-05-23] MEDS: D5W/SOD CHL 0.45% 1,000 ML IV SCH (15:45)
[2020-05-23 16:38] VITALS: BP 125/68
--- NOTE | 2020-05-23 20:01 | NUR ---
open note assumed care of pt. upon entering room pt eyes awake and alert on room air with no distress noted or expressed. pt denies any pain at this time. pt has abdominal binder in place, with lap sites, with minimal dry drainage, ROYCE drain currently empty and depressed for suction. pt updated on plan of care. bed locked, low and 2x rails up. call light in reach, pt encouraged to call as needed. this nurse to round q1hr and prn.
[2020-05-23 22:00] VITALS: BP 126/71
--- NOTE | 2020-05-23 22:00 | NUR ---
this nurse was informing pt of MD intention to advance diet to 'soft' in the AM based upon pt tolerating full liquid diet well today, however, pt stated "i dont eat solid food at home, since my throat cancer, i have whey shakes and ensure". this nurse to endorse this to dayshift RN and leave diet at full liquid at this time.
[2020-05-23] MEDS: MEROPENEM 1GM IVPB 100 ML IV SCH (23:19)
[2020-05-24] MEDS: ACCU-CHEK COMFORT CURVE STRIP VI SCH ×3 (02:00→11:02)
[2020-05-24 05:00] VITALS: BP 144/64
--- NOTE | 2020-05-24 06:11 | NUR ---
ROYCE EMPTIED 70CC SEROSANGUINEOUS FLUID AND LEFT TO SUCTION.
--- NOTE | 2020-05-24 08:00 | NUR ---
OPENING SHIFT NOTE ASSUMED CARE OF PATIENT AWAKE AND ALERT. NO S/S OF DISTRESS NOTED. PATIENT HAS A COMPLAINT OF 10/10 ABDOMINAL PAIN. WILL MEDICATE PER MD ORDER AND MAR. PATIENT UPDATED ON POC FOR THE DAY AND ALL QUESTIONS ANSWERED. BED IS IN LOWEST, LOCKED POSITION WITH SIDE RAILS UP X2 AND CALL LIGHT WITHIN REACH. WILL CONTINUE TO MONITOR Q1H AND PRN.
[2020-05-24] MEDS: HYDROmorphone HCL 2 MG/ML VL IV PRN ×2 (08:25→19:56)
--- NOTE | 2020-05-24 08:30 | NUR ---
ORYCE DRAIN UPON ASSESSMENT FOUND ROYCE BULB TO BE FULL OF 100ML SEROSANGUINEOUS DRAINAGE. DRAIN EMPTIED AND NEGATIVE PRESSURE CREATED VIA COMPRESSION OF BULB. WILL CONTINUE TO MONITOR.
[2020-05-24 09:07] VITALS: BP 137/70
--- NOTE | 2020-05-24 09:27 | NUR ---
AT BEDSIDE DR TSE AT BEDSIDE ROUNDING ON PATIENT.
[2020-05-24] MEDS: D5W/SOD CHL 0.45% 1,000 ML IV SCH (09:54)
[2020-05-24] MEDS: PANTOPRAZOLE 40 MG/10 ML VIAL INJ IV SCH (09:54)
[2020-05-24] MEDS: ENOXAPARIN SOD 30 MG/0.3 ML SYRINGE SC SCH (09:54)
[2020-05-24] MEDS: MEROPENEM 1GM IVPB 100 ML IV SCH ×2 (09:54→21:48)
--- NOTE | 2020-05-24 11:00 | NUR ---
Attempted PT treatment, pt states he does not want to get up until after he sees the MD. Pt was encouraged to get up and was educated on importance of OOB activity. Pt verbalized understanding but continues to refuse and states he will wait.
--- NOTE | 2020-05-24 12:36 | NUR ---
AT BEDSIDE DR PAL AT BEDSIDE ASSESSING PATIENT.
[2020-05-24 12:44] VITALS: BP 136/68
[2020-05-24 16:42] VITALS: BP 143/73
--- NOTE | 2020-05-24 19:56 | NUR ---
Opening Shift Note Assumed care of patient, awake and alert. No S/S of distress/SOB c/o post operative lap. antoine.pain. Instructed on POC and to call for assist PRN, will continue to monitor for changes Q1hr and PRN.Medicated with Hydromorphone one mg.i.v.p. as needed for pain level of 10/10, J.p. in placed and emptied 70cc serous .
[2020-05-24 21:34] VITALS: BP 134/69
[2020-05-25 05:00] VITALS: BP 145/75
[2020-05-25] MEDS: D5W/SOD CHL 0.45% 1,000 ML IV SCH (05:15)
[2020-05-25 05:33] LABS: Basophils # (auto) 0.1 10 ^3/uL (0-0.2); Basophils % (auto) 0.7 % (0.0-2.0); Eosinophils # (auto) 0.1 10 ^3/uL (0-0.8); Eosinophils % (auto) 1.1 % (0.0-7.0); Hemoglobin 12.3 g/dL (13.5-17.5); Lymphocytes # (auto) 0.6 10 ^3/uL (0.4-5.4); Lymphocytes % (auto) 5.9 % (10.0-50.0); Mean Corpuscular Hemoglobin 31.3 pg (28.0-32.0); Mean Corpuscular Volume 92.1 fL (80.0-100.0); Monocytes # (auto) 0.7 10 ^3/uL (0-1.3); Monocytes % (auto) 6.2 % (0.0-12.0); Neutrophils # (auto) 9.3 10 ^3/uL (1.6-8.6); Neutrophils % (auto) 86.1 % (37.0-80.0); Nucleated Red Blood Cells % 0.1 %; Platelet Count (auto) 233 10^3/uL (140-450); Red Blood Cells 3.91 10^6/uL (4.5-5.90); Red Cell Distribution Width 14.7 % (11.8-14.3); White Blood Cell 10.8 10^3/uL (4.4-10.8)
[2020-05-25 05:44] LABS: INR 1.05 (0.9-1.15)
[2020-05-25 05:52] LABS: Potassium 3.8 mmol/L (3.5-5.1)
[2020-05-25 06:00] LABS: Albumin 1.8 g/dL (3.4-5.0); BUN/Creatinine Ratio 29.6; Bilirubin, Total 0.8 mg/dL (0.2-1.0); Calcium 7.7 mg/dL (8.5-10.1); Total Protein 5.1 g/dL (6.4-8.2)
--- NOTE | 2020-05-25 07:39 | NUR ---
Report given to Eloisa Olivera, patient is resting no distress.
[2020-05-25 08:55] VITALS: BP 139/73
[2020-05-25] MEDS: PANTOPRAZOLE 40 MG/10 ML VIAL INJ IV SCH (11:31)
[2020-05-25] MEDS: ENOXAPARIN SOD 30 MG/0.3 ML SYRINGE SC SCH (11:31)
[2020-05-25] MEDS: MEROPENEM 1GM IVPB 100 ML IV SCH ×2 (11:35→21:18)
--- NOTE | 2020-05-25 12:41 | NUR ---
Nutrition Followup Note Wt 79.4kg Pt was with care team at time of rounds. Pt diet has advanced to full liquid with a good intake aeb pt with 100% po intake x 2 days per Rn note. Pt is a possible DC tomorrow per MD note. Est energy needs 1896-2030 kcal (20-25 kcal/kg BW 74.3kg) Est protein needs 44-59g (0.6-0.8g/kg BW 74.3kg r/t CKD 3 with no HD) Will reassess prn. Labs: BUN 40H, Creat 1.35H, Alb 1.8L, Ca 7.7L, GLUC 110H BM: Pt has no BM today per RN note Skin: BS 19 low risk, full details in customer care voice consultant note. PES: Altered nutrition related labs aeb pt with elevated RFTs, hypoalb, elevated bilirubin r/t current and chronic medical conditions Partially resolved: Inadequate oral intake aeb pt with a NPO diet order r/t current medical condition Comments: will continue to monitor PO intake, skin status. F/u mod 3-5 days Rec: 1) advance diet as medically feasible. 2) consider prostat 1 packet bid as RFT improve. 3) pt diet to adv and pt to tolerate diet
[2020-05-25 12:48] VITALS: BP 137/74
[2020-05-25 16:55] VITALS: BP 135/79
--- NOTE | 2020-05-25 19:55 | NUR ---
Opening Shift Note Assumed care of patient, awake and alert. No S/S of distress/SOB or pain. Instructed on POC and to call for assist PRN, will continue to monitor for changes Q1hr and PRN.
[2020-05-25 22:00] VITALS: BP 144/73
--- NOTE | 2020-05-25 23:00 | NUR ---
IV insertion IV access obtained, via clean sterile technique by inserting 22 gauge catheter at left forearm after attempt. IV secured properly. No trauma to site. Patient tolerated procedure well.
--- NOTE | 2020-05-25 23:00 | NUR ---
IV removal IV DC'd in the right forearm , and left forearm with sterile technique, catheter fully intact. Pressure dressing applied to site. Patient tolerated procedure well. Discharged with aftercare instructions per MD.
[2020-05-26 05:00] VITALS: BP 134/72
[2020-05-26] MEDS: D5W/SOD CHL 0.45% 1,000 ML IV SCH (06:05)
--- NOTE | 2020-05-26 07:22 | NUR ---
Report given to Eloisa August, patient is resting no distress, and the three sites lap.incision changed the dressings, given new abdominal binder.
--- NOTE | 2020-05-26 07:30 | NUR ---
Opening Shift Note RECEIVED REPORT FROM NOC RN. Assumed care of patient, awake and alert. No S/S of distress/SOB or pain. BED IN LOWEST, LOCKED POSITION WITH SIDERAILS UP x2 AND CALL LIGHT WITHIN REACH. Instructed on POC and to call for assist PRN, will continue to monitor for changes Q1hr and PRN.
[2020-05-26 09:00] VITALS: BP 143/76
--- NOTE | 2020-05-26 09:55 | NUR ---
DR. TSE AT BEDSIDE. PATIENT BEING DISCHARGED TODAY.
--- NOTE | 2020-05-26 10:00 | NUR ---
100ML OF SEROSANGUINEOUS FLUID DRAINED FROM ROYCE DRAIN.
[2020-05-26] MEDS: PANTOPRAZOLE 40 MG/10 ML VIAL INJ IV SCH (10:11)
[2020-05-26] MEDS: MEROPENEM 1GM IVPB 100 ML IV SCH (10:11)
[2020-05-26] MEDS: ENOXAPARIN SOD 30 MG/0.3 ML SYRINGE SC SCH (10:11)
[2020-05-26 11:37] VITALS: BP 143/76
--- NOTE | 2020-05-26 11:50 | NUR ---
PAGED ON-CALL EDGE FINISHER FOR HOME HEALTH REQUEST FOR ROYCE DRAIN MANAGEMENT.
--- NOTE | 2020-05-26 12:00 | NUR ---
ON-CALL CONCRETE BLOCK MOLDER RETURNED PAGE. UPDATED JACKI WITH SOCIAL SERVICE REQUEST FOR HOME HEALTH FOR ROYCE DRAIN MANAGEMENT. JACKI ADVISED SHE'D WORK ON IT. NO REASON TO HOLD DISCHARGE.
--- NOTE | 2020-05-26 12:00 | NUR ---
Received a call from ONEIL HOLDER stated the patient is going home and needs Home Health for LISA Drain management. Stated he is going to do full instructions with the patient on how to manage the LISA drain before he is discharged.
--- NOTE | 2020-05-26 12:15 | NUR ---
PATIENT EDUCATED ON USE AND DRAINING OF ROYCE DRAIN.
--- NOTE | 2020-05-26 12:25 | NUR ---
Discharge instructions given as ordered. Encourage to follow up with PMD as instructed. All questions and concerns addressed. Patient verbalized understanding. Medication reconciliation form completed and copy given to patient. IV removed with catheter intact, pressure dressing applied. Telemetry unit returned to ICU. Patient taken to vehicle via wheelchair with all personal belongings, accompanied by staff. No distress noted at time of departure.
--- NOTE | 2020-05-26 12:35 | NUR ---
Faxed clinical information to [facility] [phone] regrading need for LISA management
--- NOTE | 2020-05-26 13:06 | NUR ---
Spoke with Krissy SILVESTRE at [facility] and stated she has accepted the patient and will see him within 24-48 hours
== END 2020-05-26 12:24 | disposition home health service (06) | DRG 853 ==
LOC: ER 16:14 → TELE 16:15 → TELE-CENTR 05-19 01:50
PROVIDERS: ADMIT Nurse Practitioner Family; ATTEND Internal Medicine
PROC: 0FT44ZZ Resection of Gallbladder, Percutaneous Endoscopic Approach (ICD-10-PCS; principal; 2020-05-22 09:26)
DX: A41.9 Sepsis, unspecified organism (principal); K85.10 Biliary acute pancreatitis without necrosis or infection; N17.0 Acute kidney failure with tubular necrosis; E87.2 Acidosis; J21.9 Acute bronchiolitis, unspecified; E87.0 Hyperosmolality and hypernatremia; K80.12 Calculus of gallbladder with acute and chronic cholecystitis without obstruction; J98.11 Atelectasis; J90 Pleural effusion, not elsewhere classified; E86.0 Dehydration; F32.9 Major depressive disorder, single episode, unspecified; E87.5 Hyperkalemia; I12.9 Hypertensive chronic kidney disease with stage 1 through stage 4 chronic kidney disease, or unspecified chronic kidney disease; I25.10 Atherosclerotic heart disease of native coronary artery without angina pectoris; E66.01 Morbid (severe) obesity due to excess calories; K40.90 Unilateral inguinal hernia, without obstruction or gangrene, not specified as recurrent; R65.20 Severe sepsis without septic shock; N18.30 Chronic kidney disease, stage 3 unspecified; Z53.20 Procedure and treatment not carried out because of patient's decision for unspecified reasons; Z90.49 Acquired absence of other specified parts of digestive tract; R74.8 Abnormal levels of other serum enzymes; D72.829 Elevated white blood cell count, unspecified
CPT/HCPCS: 36415; 71045; 74176; 74181; 76705; 76775; 78226; 80048; 80053; 80061; 81001; 82150; 82247; 82962; 83036; 83605; 83690; 85025; 85610; 85730; 86850; 86900; 86901; 87040; 93005; 93306; 96365; 96375; 97163; C9113; G0378; J0330; J0690; J0696; J1885; J2185; J2250; J2405; J2543; J3490

== ENCOUNTER → 2022-06-16 | Outpatient (CLI) | payer OTHER ==
[~2022-06-16] MED LIST: FOSI1TAB PO; METO25TA93 PO
[2022-06-16 11:07] LABS: Basophils # (auto) 0.1 10 ^3/uL (0-0.2); Eosinophils # (auto) 0.2 10 ^3/uL (0-0.8); Hematocrit 37.8 % (41.0-53.0); Hemoglobin 12.7 g/dL (13.5-17.5); Lymphocytes # (auto) 1.3 10 ^3/uL (0.4-5.4); Lymphocytes % (auto) 16.5 % (10.0-50.0); Mean Corpuscular Hemoglobin 30.3 pg (28.0-32.0); Mean Corpuscular Hgb Conc. 33.6 g/dL (32.0-36.0); Mean Corpuscular Volume 90.3 fL (80.0-100.0); Monocytes # (auto) 0.6 10 ^3/uL (0-1.3); Monocytes % (auto) 7.7 % (0.0-12.0); Neutrophils # (auto) 5.8 10 ^3/uL (1.6-8.6); Neutrophils % (auto) 71.8 % (37.0-80.0); Red Blood Cells 4.19 10^6/uL (4.5-5.90); Red Cell Distribution Width 15.8 % (11.8-14.3)
[2022-06-16 11:24] LABS: INR 0.95 (0.9-1.15)
[2022-06-16 13:35] LABS: Albumin 3.1 g/dL (3.4-5.0); BUN/Creatinine Ratio 20.1; Bilirubin, Total 0.5 mg/dL (0.2-1.0); Calcium 8.7 mg/dL (8.5-10.1); Total Protein 7.1 g/dL (6.4-8.2); Uric Acid 6.3 mg/dL (3.5-7.2)
== END | disposition home or self-care (01) ==
LOC: LAB 10:52
PROVIDERS: ATTEND Internal Medicine
DX: I12.9 Hypertensive chronic kidney disease with stage 1 through stage 4 chronic kidney disease, or unspecified chronic kidney disease (principal); N18.30 Chronic kidney disease, stage 3 unspecified; C79.9 Secondary malignant neoplasm of unspecified site
CPT/HCPCS: 36415; 80053; 83970; 84439; 84443; 84550; 85025; 85610